=== PATIENT | female | born 1985 | race Two or more races ===

== ENCOUNTER 2016-10-30 15:51 | Emergency (ER) | payer SELFPAY ==
[2016-10-30 16:24] VITALS: TEMP 98.4; BMI 36.2
[2016-10-30] MEDS ORDERED: RANITIDINE 150 MG TAB PO ONE (16:41)
--- NOTE | 2016-10-30 16:43 | EDPRACDOC ---
- General Information Chief Complaint: Abdominal Pain Stated Complaint: ABD PAIN APPROX 17 WKS PREG LMP10/05 Time Seen by Provider: 10/30/16 16:31 Mode Of Arrival: Car Home Medications: Home Medications Vits W-Ca,Fe,FA(<1Mg) [] 1 tab PO QHS 02/08/13 Nitrofurantoin [Macrobid] 100 mg PO BID #14 cap 10/30/16 Ranitidine [Zantac] 150 mg PO BID #14 tablet 10/30/16 Allergies/Adverse Reactions: Allergies Allergy/AdvReac Type Severity Reaction Status Date / Time No Known Allergies Allergy Verified 10/30/16 16:21 - History of Present Illness Onset: 1300 HPI: Pt c/o epigastric pain x 3 hours. Denies fever, n/v, cough, congestion, changes in bowel or bladder, vaginal bleeding or discharge. Pt states 4 months . Pain Location: Reports: Epigastric Pain Context: Reports: Spontaneous Pain Severity: Moderate Pain Quality: Reports: Aching, Sharp Pain Radiation: Reports: No Radiation : Yes (17 wks) : 6 Para: 5 Abortus: 0 Blood Type: Unknown Adult Abdominal History: Denies: Abdominal Surgery, Urolithiasis, Bowel Obstruction, Similar Pain (dx) Female Abdominal History: Denies: Abdominal Surgery, UTI, Ectopic, PID, Urolithiasis, Similar Pain (dx) Modifying Factors: improves with: Nothing Female Associated Signs & Symptoms: Denies: Nausea, Frequency, Vaginal Bleeding , Vomiting, Hematemesis, Anorexia, Diarrhea, Melena, Dysuria, Fever, Urgency, Hematuria, Chills, Vaginal Discharge, Other Oral Intake: Decreased Urinary Output: Normal ED Past Medical History - History Reviewed Yes Nurses notes reviewed and agree except as marked - Social Medical History Smoking Status: Never smoker ETOH: None Substance Abuse: None EDM Review of Systems - Review of Systems Constitutional: No Symptoms Reported. negative: Fever, Chills, Weakness, Fatigue, Loss of Appetite Ears: No Symptoms Reported. negative: Pain, Hearing Loss, Drainage, Ear Pulling Throat: No Symptoms Reported. negative: Pain, Swelling Nose: No Symptoms Reported. negative: Congestion, Bleeding, Discharge, Injection, Swelling, Deformity, Ecchymosis, Tender, Abrasion, Laceration Mouth: No Symptoms Reported. negative: Pain, Drooling Respiratory: No Symptoms Reported. negative: Cough, Brassy Cough, Barky Cough, Shortness of Breath, Wheezing, Hemoptysis Cardiovascular: No Symptoms Reported. negative: Chest Pain, Palpitations, Syncope, Edema, Orthopnea, PND, Skin Mottling, Cyanosis Gastrointestinal: Pain Genitourinary: Neurological: No Symptoms Reported. negative: Headache, Dizziness, Seizure, Numbness, Weakness, Speech Difficulty, Gait Difficulty Musculoskeletal: No Symptoms Reported. negative: Neck, Chestwall, Ribs, Back, Shoulder, Arm, Elbow, Forearm, Wrist, Hand, Pelvis, Hip, Femur, Knee, Leg, Ankle , Foot Integumentary: No Symptoms Reported. negative: Itching, Rash, Bruising, Wound Allergic/Immunologic: No Symptoms Reported. negative: Hives, Itching Hematologic: No Symptoms Reported. negative: Lymphadenopathy, Easy Bruising, Easy Bleeding Psychiatric: No Symptoms Reported. negative: Anxiety, Depression, Hallucinations, Insomnia, Suicidal - Physical Exam Constitutional: Alert Oriented to: Time, Person, Place Last recorded Vital Signs: Last Vital Signs Temp 98.4 F 10/30/16 16:21 Pulse 80 10/30/16 16:21 Resp 18 10/30/16 16:21 BP 137/83 10/30/16 16:21 Pulse Ox 99 10/30/16 16:21 Oxygen Pulse Oxygen Saturation 99 O2 Device Room Air Oxygen Flow Rate Fraction of Inspired Oxygen ( FIO2) - HEENT Head: Normal ( normocephalic) Eye Exam: Normal (PERRL, EOMI, Sclera white) Oropharynx: Normal (Pharynx:Moist without exudate,Gums-no swelling) Tympanic Membrane: Normal ENT EAC: Normal Nose: No Symptoms Reported (septum midline) Neck: Normal (FROM, trachea at midline) - Respiratory/Cardiovascular Respiratory: Normal - CTA (BBS clear to auscultation without adventitious sounds ) Cardiovascular: Normal (RRR without murmur, gallop or rub) - GI Auscultation: Normal (NABS) Palpation: Normal (Soft,No rebound or guarding, non distended) Tenderness: Non tender Rene's Sign: Negative - Musculoskeletal Back: Normal (Non-Tender) Extremities: Normal (Normal tone, Pulses 2+ No cyanosis or edema, FROM) - Integumentary Skin: Normal, Warm, Dry Lymphatics: Normal (no adenopathy) - Neurologic Memory Impaired: Normal Motor Function: Normal (Normal tone, Pulses 2+ No cyanosis or edema, FROM) Mood Description: Normal Perception: Normal - Differential Diagnosis Gastroenteritis, PUD, UTI, Other (GERD) - Results Urine Color Pale yellow 10/30/16 16:40 Urine Clarity Sl hzy 10/30/16 16:40 Urine pH 6.0 (5.0-8.0) 10/30/16 16:40 Ur Specific [place] 1.005 (1.003-1.035) 10/30/16 16:40 Urine Protein Neg (NEG/TRACE) 10/30/16 16:40 Urine Glucose (UA) Neg (NEGATIVE) 10/30/16 16:40 Urine Ketones Neg (NEGATIVE) 10/30/16 16:40 Urine Occult Blood Neg (NEG/TRACE) 10/30/16 16:40 Urine Nitrite Neg (NEGATIVE) 10/30/16 16:40 Urine Bilirubin Neg (NEGATIVE) 10/30/16 16:40 Urine Urobilinogen <2.0 MG/DL (0-1) 10/30/16 16:40 Ur Leukocyte Esterase 2+ (NEGATIVE) H 10/30/16 16:40 Urine RBC 0-2 (0-5) 10/30/16 16:40 Urine WBC 5-10 (0-5) H 10/30/16 16:40 Ur Epithelial Cells 2+ 10/30/16 16:40 Amorphous Sediment Occ 10/30/16 16:40 Urine Bacteria Few (NEG/FEW) 10/30/16 16:40 Lab Results 10/30/16 16:40 Urine Color Pale yellow Urine Clarity Sl hzy Urine pH 6.0 Ur Specific [place] 1.005 Urine Protein Neg Urine Glucose (UA) Neg Urine Ketones Neg Urine Occult Blood Neg Urine Nitrite Neg Urine Bilirubin Neg Urine Urobilinogen <2.0 Ur Leukocyte Esterase 2+ H Urine RBC 0-2 Urine WBC 5-10 H Ur Epithelial Cells 2+ Amorphous Sediment Occ Urine Bacteria Few Decision Time to Discharge: 17:43 - Departure Disposition: Home Condition: Good Final Diagnosis: Epigastric abdominal pain UTI (urinary tract infection) Qualifiers: Urinary tract infection type: acute cystitis Hematuria presence: without hematuria Qualified Code(s): N30.00 - Acute cystitis without hematuria Instructions: Urinary Tract Infection in Women (ED), Dysuria, Acid Reflux Education/Counseling Given To: Patient Education/Counseling Given Regarding: Diagnosis, Treatment, Follow Up Referrals: None,No Provider [Primary Care Provider] - One Week Celine Sorto MD [Staff Physician] - One Week Prescriptions: Nitrofurantoin [Macrobid] 100 mg PO BID #14 cap Ranitidine [Zantac] 150 mg PO BID #14 tablet Additional Instructions: Avoid spicy, greasy, fatty foods. Tylenol as needed for pain. Return for worse or different symptoms.
[2016-10-30 17:28] LABS: AMORPHOUS OCC; LEUKOCYTES/URINE 2+ (NEGATIVE); NITRITE/URINE NEG (NEGATIVE); RBC/URINE 0-2 (0-5); URINE OCCULT BLOOD NEG (NEG/TRACE)
[2016-10-30 17:55] VITALS: BP 133/84; PULSE 82
== END 2016-10-30 17:54 | disposition home or self-care (01) ==
LOC: ED 15:51
DX: O23.42 Unspecified infection of urinary tract in pregnancy, second trimester (principal); Z3A.17 17 weeks gestation of pregnancy
CPT/HCPCS: 81001; 99283; J3490